=== PATIENT | female | born 1980 | race Caucasian/White ===

== ENCOUNTER → 2017-02-27 | Outpatient (CLI) | payer MEDICARE, OTHER ==
--- NOTE | 2017-02-27 10:18 | XR ---
EXAM TYPE: LUMBAR SPINE X RAY SERIES COMPARISON: NONE HISTORY: Low back pain TECHNIQUE: 3 views are submitted. FINDINGS: Alignment is anatomic. The pedicles are intact. The transverse processes are intact. There is no s pondylolysis or spondylolisthesis. Retained fecal debris throughout the colon. Slight curvature the spine with hypertrophic changes noted at levels L1-L4. Mild degenerative disc disease L2-L3. IMPRESSION: 1. Mild degenerative disc disease L2-L3. 2. Multilevel anterior hypertrophic spur formation.
== END ==
LOC: RADXRMAIN 08:24
PROVIDERS: ATTEND Family Medicine
DX: M51.36 Other intervertebral disc degeneration, lumbar region (principal)
CPT/HCPCS: 72100

== ENCOUNTER → 2019-07-24 | Outpatient (CLI) | payer MEDICARE, OTHER ==
--- NOTE | 2019-07-24 11:46 | XR ---
EXAMINATION TYPE: XR hand complete RT DATE OF EXAM: 07/24/2019 CLINICAL HISTORY: Right hand laceration over the second metacarpal phalangeal joint. Swelling. TECHNIQUE: Frontal, lateral and oblique images of the right hand are obtained. COMPARISON: None. FINDINGS: There is no acute fracture/dislocation evident in the right hand. The joint spaces in the right hand appear within normal limits. There is mild swelling at the second metacarpophalangeal join t. No radiopaque foreign body. IMPRESSION: Mild soft tissue swelling over the right second metacarpal phalangeal joint without acute fracture or dislocation in the right hand. No radiopaque foreign body is seen.
== END | disposition home or self-care (01) ==
LOC: RADXRMAIN 08:44
PROVIDERS: ATTEND Physician Assistant
DX: M25.441 Effusion, right hand (principal)